=== PATIENT | female | born 1990 | race Caucasian/White ===

== ENCOUNTER 2016-05-14 21:22 | Emergency (ER) | payer OTHER ==
[~2016-05-14] VITALS: Ht 160 cm; Wt 53.5 kg
[~2016-05-14 21:22] MED LIST: AMO500 PO; IBUP-1542 PO; LEVOTHYROID; PRED20TA PO
[2016-05-14 21:53] VITALS: Ht 160 cm; Wt 53.5 kg
[2016-05-14] MEDS ORDERED: PEN500 PO (22:38)
[2016-05-14] MEDS ORDERED: IBUP-1542 PO (22:38)
--- NOTE | 2016-05-14 22:49 | ERD ---
ER Documentation Chief Complaint Date/Time DATE: 05/14/16 TIME: 22:47 Chief Complaint BILATERAL EAR PAIN WITH SORE THROAT AND FEVER SINCE SUNDAY HPI 45-year-old female presents to emergency department for complaints of sore throat reading to bilateral ear area and fever started 3 days ago. Patient described the sore throat as throbbing pain, 8/10 scale, is worse upon swallowing, radiates to both ears. Patient denies any ear discharge, patient denies any problems with hearing. Patient denies any cough shortness breath or wheezing. Patient denies any stridor. She did not take the medications to help with pain. ROS All systems reviewed and are negative except as per history of present illness. Medications Home Meds Active Scripts Ibuprofen* (Motrin*) 600 Mg Tab, 600 MG PO Q6H Y for PAIN AND OR ELEVATED TEMP, #30 TAB Prov:BAYRON TABARES [employer]ESS PROJECT ENGINEER 05/14/16 Penicillin V Potassium* (Penicillin V K*) 500 Mg Tab, 500 MG PO QID for 10 Days , TAB Prov:BAYRON TABARES NP 05/14/16 Amoxicillin* (Amoxicillin*) 500 Mg Cap, 500 MG PO TID for 10 Days, CAP Prov:KATLIN MELISSA MD 04/05/15 Ibuprofen* (Motrin*) 600 Mg Tab, 600 MG PO Q6, #14 TAB Prov:KATLIN MELISSA MD 04/05/15 Prednisone* (Prednisone*) 20 Mg Tab, 40 MG PO DAILY for 4 Days, TAB Prov:KATLIN MELISSA MD 04/05/15 Reported Medications [Levothyroid] No Conflict Check 12/08/10 Allergies Allergies: Coded Allergies: No Known Drug Allergies (Verified Allergy, Mild, 12/08/10) PMhx/Soc Medical and Surgical Hx: pt denies Medical Hx, pt denies Surgical Hx History of Surgery: No Anesthesia Reaction: No Hx Neurological Disorder: No Hx Respiratory Disorders: No Hx Cardiac Disorders: No Hx Psychiatric Problems: No Hx Miscellaneous Medical Probl: No Hx Alcohol Use: No Hx Substance Use: No Hx Tobacco Use: No FmHx Family History: No coronary disease, No diabetes, No other Physical Exam Vitals Vital Signs Date Time Temp Pulse Resp B/P Pulse Ox O2 Delivery O2 Flow Rate FiO2 05/14/16 21:53 99.3 79 16 127/81 99 Physical Exam GENERAL: The patient is well developed and appropriate for usual state of health, in no apparent distress. HEENT: Atraumatic. Ears: Normal tympanic membrane, no erythema or bulging. No ear canal swelling. No ear discharge. Nose: normal nasal turbinates, no erythema or swelling. Normal nasal discharge. Throat: oropharynx erythematous + 1 tonsillar swelling and tonsillar exudates in both tonsils noted. No lymphadenopathy. CHEST: Clear to auscultation bilaterally. There are no rales, wheezes or rhonchi. HEART: Regular rate and rhythm. No murmurs, clicks, rubs or gallops. No S3 or S4. ABDOMEN: Soft, nontender and nondistended. Good bowel sounds. No rebound or guarding. No gross peritonitis. No gross organomegaly or masses. No Barber sign or McBurney point tenderness. BACK: No midline or flank tenderness. EXTREMITIES: Equal pulses bilaterally. There is no peripheral clubbing, cyanosis or edema. No focal swelling or erythema. Full range of motion. Grossly neurovascularly intact. NEURO: Alert and oriented. Cranial nerves 2-12 intact. Motor strength in all 4 extremities with 5/5 strength. Sensation grossly intact. Normal speech and gait. SKIN: There is no apparent rash or petechia. The skin is warm and dry. HEMATOLOGIC AND LYMPHATIC: There is no evidence of excessive bruising or lymphedema. No gross cervical, axillary, or inguinal lymphadenopathy. Procedures/MDM Medical decision making: Patient's symptoms most likely consistent with acute bacterial pharyngitis, most likely strep throat, no symptoms of any peritonsillar abscess. No oral airway obstruction noted. No symptoms of respiratory distress. No symptoms of epiglottitis, laryngitis. Patient was given prescription for penicillin VK, ibuprofen, is advised to drink a lot of water and rest, salt water gargles, patient is advised to return to emergency department for any worsening symptoms. Follow with primary care doctor in 2-3 days for reevaluation of symptoms Departure Diagnosis: Primary Impression: Acute bacterial pharyngitis Condition: Stable Patient Instructions: Pharyngitis, Strep (Presumed) BAYRON TABARES NP May 14, 2016 22:49
== END 2016-05-14 23:10 | disposition home or self-care (01) ==
LOC: FTE 21:22
DX: J02.8 Acute pharyngitis due to other specified organisms (principal); B96.89 Other specified bacterial agents as the cause of diseases classified elsewhere
CPT/HCPCS: 99283

== ENCOUNTER 2016-07-06 13:19 | Emergency (ER) | payer OTHER ==
[~2016-07-06] VITALS: Ht 157.5 cm; Wt 55.0 kg
[~2016-07-06 13:19] MED LIST changes: +PEN500 PO
[2016-07-06 13:22] VITALS: Ht 157.5 cm; Wt 55.0 kg
[2016-07-06] MEDS ORDERED: BEN25 PO (14:09)
[2016-07-06] MEDS ORDERED: CLOT30CR24 TOP (14:09)
--- NOTE | 2016-07-06 14:43 | ERD ---
ER Documentation Chief Complaint Date/Time DATE: 07/06/16 TIME: 14:38 Chief Complaint RASH ON CHIN X 3 DAYS HPI This patient is a 26-year-old female with no significant medical history presenting to the emergency department for pruritic rash on her chin ongoing intermittently for the past month. The patient denies having this in the past. The patient has oily skin. The patient does wear significant amount of makeup daily. The patient has tried A and D ointment at home with no relief of symptoms. The patient has not been able to make an appointment with her primary care physician. The patient denies fevers, chills, discharge from the rash, significant redness, or other symptoms at this time. ROS All systems reviewed and are negative except as per history of present illness. Medications Home Meds Active Scripts Clotrimazole* (Clotrimazole* AF) 1% - 30 Gm Cream.gm., 1 APPLIC TOP BID for 7 Days, #1 TUB Prov:MONET KAUFMAN PA-C 07/06/16 Diphenhydramine Hcl* (Benadryl*) 25 Mg Cap, 25 MG PO Q6, #20 CAP Prov:MONET KAUFMAN PA-C 07/06/16 Ibuprofen* (Motrin*) 600 Mg Tab, 600 MG PO Q6H Y for PAIN AND OR ELEVATED TEMP, #30 TAB Prov:BAYRON TABARES NP 05/14/16 Penicillin V Potassium* (Penicillin V K*) 500 Mg Tab, 500 MG PO QID for 10 Days , TAB Prov:BAYRON TABARES NP 05/14/16 Amoxicillin* (Amoxicillin*) 500 Mg Cap, 500 MG PO TID for 10 Days, CAP Prov:KATLIN MELISSA MD 04/05/15 Ibuprofen* (Motrin*) 600 Mg Tab, 600 MG PO Q6, #14 TAB Prov:KATLIN MELISSA MD 04/05/15 Prednisone* (Prednisone*) 20 Mg Tab, 40 MG PO DAILY for 4 Days, TAB Prov:KATLIN MELISSA MD 04/05/15 Reported Medications [Levothyroid] No Conflict Check 12/08/10 Allergies Allergies: Coded Allergies: No Known Drug Allergies (Verified Allergy, Mild, 12/08/10) PMhx/Soc History of Surgery: No Anesthesia Reaction: No Hx Neurological Disorder: No Hx Respiratory Disorders: No Hx Cardiac Disorders: No Hx Psychiatric Problems: No Hx Miscellaneous Medical Probl: Yes (ear infections, "throat infections") Hx Alcohol Use: Yes (ocassional) Hx Substance Use: No Hx Tobacco Use: No FmHx Noncontributory for chief complaint Physical Exam Vitals Vital Signs Date Time Temp Pulse Resp B/P Pulse Ox O2 Delivery O2 Flow Rate FiO2 07/06/16 13:22 97.8 91 18 112/62 97 Physical Exam Const: The patient is resting comfortably in no acute distress. Head: Atraumatic Eyes: Normal Conjunctiva ENT: Normal External Ears, Nose and Mouth. Neck: Full range of motion..~ No meningismus. Resp: Clear to auscultation bilaterally Cardio: Regular rate and rhythm, no murmurs Abd: Soft, non tender, non distended. Normal bowel sounds Skin: There is a macular rash which is very mild and localized to the chin. There is no warmth or significant erythema noted. There is no flaking, discharge, or vesiculations. Back: No midline or flank tenderness Ext: No cyanosis, or edema Neur: Awake and alert Psych: Normal Mood and Affect Procedures/MDM 26-year-old female presents secondary to complaints of rash on her chin. On physical examination her vitals are within normal limits. Examination of the skin shows mild macules localized to the chin. I have low suspicion for cellulitis or deep tissue infection. The patient will be given a trial of clotrimazole twice daily for 7 days and Benadryl to be taken as needed. This rash may be fungal etiology. She agrees with the discharge plan and diagnosis. All questions and concerns were addressed. The patient should certainly have close follow-up with her primary care physician and possible dermatology referral. All questions and concerns addressed. Strict ER return precautions discussed. Departure Diagnosis: Primary Impression: Rash and other nonspecific skin eruption Condition: Fair Patient Instructions: Self-Care for Skin Rashes Additional Instructions: Follow up with your PCP within the next 1-3 days for a more thorough evaluation and a possible referral to a specialist. Return the the emergency department immediately if symptoms worsen or change. If you have any questions regarding medications, ask your pharmacist or us before you leave. If any adverse reactions, occur while taking your medications, discontinue the treatment and return to the emergency department immediately. If any new or worsening symptoms, uncontrolled fevers, or other unexplained symptoms occur, return to the emergency department immediately. Take your medications as directed, and complete the entire course of treatment. MONET KAUFMAN PA-C July 06, 2016 14:42
== END 2016-07-06 17:52 | disposition home or self-care (01) ==
LOC: E/R 13:19
DX: R21 Rash and other nonspecific skin eruption (principal)
CPT/HCPCS: 99283

== ENCOUNTER 2016-08-04 19:15 | Emergency (ER) | payer OTHER ==
[~2016-08-04] VITALS: Ht 160 cm; Wt 52.5 kg
[~2016-08-04 19:15] MED LIST changes: +BEN25 PO; +CLOT30CR24 TOP
[2016-08-04 19:38] VITALS: Ht 160 cm; Wt 52.5 kg
[2016-08-04] MEDS ORDERED: SOD CHLORIDE 0.9% 1,000 ML IV STA (20:33)
[2016-08-04] MEDS ORDERED: METOCLOPRAMIDE 10 MG INJ IV ONE (21:00)
[2016-08-04 21:05] LABS: ADD SCAN DIFF NO
[2016-08-04 21:11] LABS: ADD UMIC YES; URINE BILIRUBIN (Dip) NEGATIVE (NEGATIVE); URINE BLOOD (Dip) NEGATIVE (NEGATIVE); URINE COLOR YELLOW (YELLOW); URINE GLUCOSE (Dip) NEGATIVE (NEGATIVE); URINE KETONES (Dip) NEGATIVE (NEGATIVE); URINE LEUKOCYTE ESTERASE (Dip) NEGATIVE (NEGATIVE); URINE NITRITE (Dip) NEGATIVE (NEGATIVE); URINE TOTAL PROTEIN (Dip) NEGATIVE (NEGATIVE); URINE UROBILINOGEN (Dip) 1.0 E.U./dL (0.1-1.0)
[2016-08-04 21:31] LABS: BACTERIA,URINE FEW; MUCUS,URINE MANY; SQUAMOUS EPITHELIAL CELL,UR MODERATE; URINE RBCS 0-2 /HPF (0)
[2016-08-04 21:56] LABS: BASOPHILS % 0.2 % (0.0-2.0); EOSINOPHILS # 0.2 10^3/ul (0.0-0.5); EOSINOPHILS % 2.1 % (0.0-7.0); HEMATOCRIT 32.9 % (37.0-47.0); HEMOGLOBIN 11.6 g/dl (12.0-16.0); LYMPHOCYTES # 2.2 10^3/ul (0.8-2.9); LYMPHOCYTES % 27.5 % (15.0-51.0); MEAN CORPUSCULAR HEMOGLOBIN 31.2 pg (29.0-33.0); MEAN CORPUSCULAR HGB CONC 35.3 g/dl (32.0-37.0); MEAN CORPUSCULAR VOLUME 88.4 fl (82.0-101.0); MEAN PLATELET VOLUME 9.9 fl (7.4-10.4); MONOCYTE # 0.6 10^3/ul (0.3-0.9); MONOCYTES % 7.2 % (0.0-11.0); NEUTROPHILS % 62.6 % (39.0-77.0); PLATELET COUNT 210 10^3/UL (140-415); RED BLOOD COUNT 3.72 10^6/ul (4.20-5.40); RED CELL DISTRIBUTION WIDTH 12.2 % (11.5-14.5); WHITE BLOOD COUNT 8.1 10^3/ul (4.8-10.8)
--- NOTE | 2016-08-04 22:01 | RADRPT ---
PROCEDURE: US OB. CLINICAL INDICATION: 26-year-old female with vaginal bleeding. TECHNIQUE: Transabdominal and transvaginal views of the pelvis are available for review. COMPARISON: No prior studies are available for comparison. FINDINGS: There is fluid in the cul-de-sac. The uterus is anteflexed and contains a gestational sac containin g a single fetus. Placenta: Circumferential grade 0 placenta. A small subchorionic hemorrhage is identified measuring 1.3 x 0.3 cm. Presentation:Mobile. Mamers-rump length:1.1 cm = 7 weeks 1 day plus or minus 0 weeks 3 days.. heart rate:139 beats per minute. Amniotic fluid volume: Normal. A yolk sac is identified which measures 0.36 cm. Ultrasound estimated gestational age:7 weeks 1 day plus or minus 0 weeks 3 days. There is normal blood flow to the right ovary. The right ovary measures 3.3 x 1.9 x 2.4 cm. The le ft ovary is not visualized. No ovarian or adnexal mass lesion is seen. IMPRESSION: 1. A single viable fetus is identified presenting mobile. AUA: 7 weeks 1 day plus or minus 0 weeks 3 days. 2. RUBY (AUA) March 22, 2017. 3. A small subchorionic hemorrhage is identified. It measures about 1.3 x 0.3 cm in size. 4. Trace fluid in the cul-de-sac. 5. Normal right ovary. The left ovary is not visualized or evaluated. RPTAT:AAJJ Physician Jennifer Date Time Electronically viewed and signed by Physician Jennifer on 08/04/2016 22:00 [place]/
[2016-08-04] MEDS ORDERED: METO10TA92 PO (22:20)
--- NOTE | 2016-08-04 22:27 | ERD ---
ER Documentation Chief Complaint Date/Time DATE: 08/04/16 TIME: 22:26 Chief Complaint 7 WKS , ABD PAIN, VOMITING X 2 WEEKS, UNABLE TOLERATE ORAL INTAKE HPI Patient is a 26-year-old female who is approximately 7 weeks complaining of abdominal pain and nausea and vomiting and inability to tolerate oral intake for the past 2 weeks. Denies fever. Denies any dysuria hematuria or increased urinary frequency. Denies any vaginal bleeding yesterday but states she had a little bit of pink in her urine yesterday however that is now resolved. ROS All systems reviewed and are negative except as per history of present illness. Medications Home Meds Active Scripts Metoclopramide* (Reglan*) 10 Mg Tablet, 10 MG PO Q6 Y for NAUSEA AND/OR VOMITING , #20 TAB Prov:CHADD GARAY PA-C 08/04/16 Clotrimazole* (Clotrimazole* AF) 1% - 30 Gm Cream.gm., 1 APPLIC TOP BID for 7 Days, #1 TUB Prov:MONET KAUFMAN PA-C 07/06/16 Diphenhydramine Hcl* (Benadryl*) 25 Mg Cap, 25 MG PO Q6, #20 CAP Prov:MONET KAUFMAN PA-C 07/06/16 Ibuprofen* (Motrin*) 600 Mg Tab, 600 MG PO Q6H Y for PAIN AND OR ELEVATED TEMP, #30 TAB Prov:BAYRON TABARES FLOOR COVERING PRINTER 05/14/16 Penicillin V Potassium* (Penicillin V K*) 500 Mg Tab, 500 MG PO QID for 10 Days , TAB Prov:BAYRON TABARES FLOOR COVERING PRINTER 05/14/16 Amoxicillin* (Amoxicillin*) 500 Mg Cap, 500 MG PO TID for 10 Days, CAP Prov:KATLIN MELISSA MD 04/05/15 Ibuprofen* (Motrin*) 600 Mg Tab, 600 MG PO Q6, #14 TAB Prov:KATLIN MELISSA MD 04/05/15 Prednisone* (Prednisone*) 20 Mg Tab, 40 MG PO DAILY for 4 Days, TAB Prov:KATLIN MELISSA MD 04/05/15 Reported Medications [Levothyroid] No Conflict Check 12/08/10 Allergies Allergies: Coded Allergies: No Known Drug Allergies (Verified Allergy, Mild, 12/08/10) PMhx/Soc Medical and Surgical Hx: pt denies Medical Hx, pt denies Surgical Hx History of Surgery: No Anesthesia Reaction: No Hx Neurological Disorder: No Hx Respiratory Disorders: No Hx Cardiac Disorders: No Hx Psychiatric Problems: No Hx Miscellaneous Medical Probl: Yes (ear infections, "throat infections") Hx Alcohol Use: Yes (ocassional) Hx Substance Use: No Hx Tobacco Use: No Smoking Status: Never smoker FmHx Family History: No diabetes Physical Exam Vitals Vital Signs Date Time Temp Pulse Resp B/P Pulse Ox O2 Delivery O2 Flow Rate FiO2 08/04/16 19:38 99.1 95 17 125/67 98 Physical Exam General: well developed, well nourished, alert, nontoxic, no distress Head: normocephalic, atraumatic Eyes: PERRL, normal conjunctiva Neck: Supple, nontender, no lymphadenopathy, no midline tenderness Respiratory: Clear to auscaultation bilaterally, speaks in full sentences, no use of accesory muscles or labored breathing, no rales, ronchi, or wheezing Cardiovascular: RRR, No murmurs GI: soft, non tender, non distended, negative murphys sign, negative mcburneys point tenderness, Result Diagram: 08/04/162129 Results 24 hrs Laboratory Tests Test 08/04/16 20:45 08/04/16 21:05 08/04/16 21:30 Urine Color YELLOW Urine Clarity CLOUDY Urine pH 6.5 Urine Specific [place] 1.020 Urine Ketones NEGATIVE Urine Nitrite NEGATIVE Urine Bilirubin NEGATIVE Urine Urobilinogen 1.0 E.U./dL Urine Leukocyte Esterase NEGATIVE Urine Microscopic RBC 0-2/HPF Urine Microscopic WBC 0-2/HPF Urine Squamous Epithelial Cells MODERATE Urine Bacteria FEW Urine Mucus MANY Urine Hemoglobin NEGATIVE Urine Glucose NEGATIVE% Urine Total Protein NEGATIVE Beta HCG, Quantitative 46251.0mIU/ml White Blood Count 8.110^3/ul Red Blood Count 3.7210^6/ul Hemoglobin 11.6g/dl Hematocrit 32.9% Mean Corpuscular Volume 88.4fl Mean Corpuscular Hemoglobin 31.2pg Mean Corpuscular Hemoglobin Concent 35.3g/dl Red Cell Distribution Width 12.2% Platelet Count 98761^3/UL Mean Platelet Volume 9.9fl Neutrophils % 62.6% Lymphocytes % 27.5% Monocytes % 7.2% Eosinophils % 2.1% Basophils % 0.2% Nucleated Red Blood Cells % 0.0/100WBC Neutrophils # 5.010^3/ul Lymphocytes # 2.210^3/ul Monocytes # 0.610^3/ul Eosinophils # 0.210^3/ul Basophils # 0.010^3/ul Nucleated Red Blood Cells # 0.010^3/ul Current Medications Medications (Trade) Dose Ordered Sig/Clive Route PRN Reason Start Time Stop Time Status Last Admin Dose Admin Sodium Chloride (NS) 1,000 ml @ 1,000 mls/hr Q1H STAT IV 08/04/16 20:33 08/04/16 21:32 DC 08/04/16 21:08 Metoclopramide HCl (Reglan) 10 mg ONCE ONCE IV 08/04/16 21:00 08/04/16 21:01 DC 08/04/16 21:08 Procedures/MDM 26-year-old presents with abdominal pain during . Vital signs are normal she is well-appearing in no distress. She had relief of her symptoms with IV fluids and nausea medication. Labs and ultrasound is unremarkable. No evidence of ectopic. Patient discharged with copies of everything she can follow with primary care as well as prescription for Reglan. Recommended this patient follow up with her primary care doctor within 48 hours or return to the emergency room for any worsening of symptoms. However this time I do believe there is suitable for outpatient management. I answered all their questions and they agreed with the plan and were discharged home. Departure Diagnosis: Primary Impression: Nausea and vomiting during Condition: Stable Patient Instructions: : Body Changes Additional Instructions: Call your primary care doctor TOMORROW for an appointment during the next 1-2 days.See the doctor sooner or return here if your condition worsens before your appointment time. CHADD GARAY PA-C Aug 04, 2016 22:27
== END 2016-08-04 22:29 | disposition home or self-care (01) ==
LOC: FTE 19:15
DX: O21.9 Vomiting of pregnancy, unspecified (principal); O26.891 Other specified pregnancy related conditions, first trimester; R10.9 Unspecified abdominal pain
CPT/HCPCS: 36415; 76801; 76817; 81001; 84702; 85025; 86900; 86901; 96374; J2765; J7030; Z7502

== ENCOUNTER 2016-08-15 08:36 | Emergency (ER) | payer OTHER ==
[~2016-08-15] VITALS: Ht 160 cm; Wt 62.0 kg
[~2016-08-15 08:36] MED LIST changes: +METO10TA92 PO
[2016-08-15 08:52] VITALS: Ht 160 cm; Wt 62.0 kg
[2016-08-15] MEDS ORDERED: ACETAMINOPHEN 325 MG TAB PO STA (08:55)
[2016-08-15 09:24] LABS: ADD SCAN DIFF NO
[2016-08-15 09:29] LABS: BASOPHILS % 0.1 % (0.0-2.0); EOSINOPHILS # 0.1 10^3/ul (0.0-0.5); EOSINOPHILS % 0.9 % (0.0-7.0); HEMATOCRIT 35.4 % (37.0-47.0); HEMOGLOBIN 12.4 g/dl (12.0-16.0); MEAN CORPUSCULAR HEMOGLOBIN 31.1 pg (29.0-33.0); MEAN CORPUSCULAR VOLUME 88.7 fl (82.0-101.0); MEAN PLATELET VOLUME 9.5 fl (7.4-10.4); MONOCYTE # 0.4 10^3/ul (0.3-0.9); MONOCYTES % 5.1 % (0.0-11.0); NEUTROPHIL # 5.4 10^3/ul (1.6-7.5); NEUTROPHILS % 79.6 % (39.0-77.0); PLATELET COUNT 205 10^3/UL (140-415); RED BLOOD COUNT 3.99 10^6/ul (4.20-5.40); RED CELL DISTRIBUTION WIDTH 12.2 % (11.5-14.5); WHITE BLOOD COUNT 6.8 10^3/ul (4.8-10.8)
--- NOTE | 2016-08-15 09:34 | RADRPT ---
PROCEDURE: Right wrist series CLINICAL INDICATION: Pain. TECHNIQUE: 4 views. COMPARISON: None FINDINGS: No fractures are noted. Joint spaces are well maintained. No erosions are identified. The soft tissues are unremarkable. IMPRESSION: 1. No bony abnormalities are identified. RPTAT: HH .Nicola Montenegro MD, Date Time Electronically viewed and signed by .Nicola Montenegro MD, on 08/15/2016 09:34 .G/
--- NOTE | 2016-08-15 09:34 | RADRPT ---
PROCEDURE: Left ankle series CLINICAL INDICATION: Pain. TECHNIQUE: 3 views. COMPARISON: None FINDINGS: No fractures are noted. No lesions are visualized. No significant degenerative changes are noted. The ankle mortise is intact. The soft tissues are unremarkable. IMPRESSION: 1. No bony abnormalities are identified. RPTAT: HH .Nicola Montenegro MD, MD Date Time Electronically viewed and signed by .Nicola Montenegro MD, on 08/15/2016 09:33 .G/
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
--- NOTE | 2016-08-15 10:20 | RADRPT ---
PROCEDURE: OBSTETRICAL ULTRASOUND WITH ENDOVAGINAL IMAGES CLINICAL INDICATION: Vaginal Bleed () TECHNIQUE: Multiple sonographic images of the pelvis were obtained utilizing a transabdominal and endovaginal technique. The images were reviewed on a PACS workstation. COMPARISON: Obstetrical ultrasound from 08/04/2016 FINDINGS: There is a single live intrauterine with heart rate of 158 beats per minute, mean sa c diameter of 3.67 cm, yolk sac, and crown-rump length of 2.30 cm which is consistent with a gestati onal age of 9 weeks, 0 days . The estimated date of delivery by ultrasound is 03/20/2017 . The estimated gestational age by LMP is 8 weeks, 4 days . The estimated date of delivery by LMP is 03/23/2017 . There is a hypoechoic crescentic lesion adjacent to the gestational sac measuring 2.1 x 0.5 cm consi stent with a subchorionic hemorrhage. The right ovary measures 3.2 x 1.7 x 2.4 cm. The left ovary measures 2.6 x 1.4 x 2.0 cm. There is no rmal vascular flow in both ovaries. There is a 1.9 cm complex cystic lesion with low level internal echoes, post acoustic enhancement, a nd mild peripheral vascular flow which is likely a hemorrhagic/corpus luteal cyst. No significant pelvic free fluid is identified. IMPRESSION: Single live intrauterine consistent with a gestational age of 9 weeks, 0 days . The estimated date of delivery is 03/20/2017 . Dating by ultrasound is within 3 days of dating by LMP. 2.1 cm subchorionic hemorrhage. 1.9 cm complex cystic lesion in the right ovary is likely a hemorrhagic/corpus luteal cyst. RPTAT: EE Physician Jessica Date Time Electronically viewed and signed by Physician Jessica on 08/15/2016 10:20 /
[2016-08-15 11:30] VITALS: BP 113/71; PULSE 72; RESP 20
== END 2016-08-15 11:30 | disposition home or self-care (01) ==
LOC: E/R 08:36
DX: O9A.211 Injury, poisoning and certain other consequences of external causes complicating pregnancy, first trimester (principal); S60.211A Contusion of right wrist, initial encounter; S93.402A Sprain of unspecified ligament of left ankle, initial encounter; O41.8X10 Other specified disorders of amniotic fluid and membranes, first trimester, not applicable or unspecified; Y08.89XA Assault by other specified means, initial encounter; Z3A.09 9 weeks gestation of pregnancy
CPT/HCPCS: 73110; 73610; 76801; 84702; 85025; 86900; 86901; J2790; Z7502; Z7610

== ENCOUNTER 2017-11-11 20:44 | Emergency (ER) | END 2017-11-11 22:50 | disposition home or self-care (01) ==